=== PATIENT | male | born 1995 | race Hispanic/Latino ===

== ENCOUNTER 2018-01-22 18:54 | Emergency (ER) | payer SELFPAY ==
[2018-01-22] MEDS ORDERED: Ibuprofen 800 MG TAB ONE (19:02)
--- NOTE | 2018-01-22 20:12 | RAD ---
RIGHT WRIST THREE VIEWS: HISTORY: A 22-year-old male with a history of right wrist pain following an injury. FINDINGS: Comminuted fracture of the distal radial metadiaphysis with some dorsal displacement, slight foreshor tening, and dorsal angulation. Displaced ulnar styloid process fracture. IMPRESSION: 1. Slightly comminuted, minimally dorsally displaced and dorsally shortened distal radial fracture. 2. Displaced ulnar styloid process fracture. POS: [facility] [place]
[2018-01-22] MEDS ORDERED: Acetaminophen/Codeine 30-300mg Tablet ONE (20:13)
== END 2018-01-22 21:27 | disposition home or self-care (01) ==
LOC: ERS 18:54
DX: S52.501A Unspecified fracture of the lower end of right radius, initial encounter for closed fracture (principal); S52.601A Unspecified fracture of lower end of right ulna, initial encounter for closed fracture; W09.8XXA Fall on or from other playground equipment, initial encounter; Y93.66 Activity, soccer
CPT/HCPCS: 29125

== ENCOUNTER 2018-11-23 10:26 | Emergency (ER) | payer SELFPAY ==
[2018-11-23] MEDS ORDERED: Ibuprofen 800 MG TAB ONE (11:29)
--- NOTE | 2018-11-23 11:56 | RAD ---
PORTABLE CHEST: History: Chest pain and fever. FINDINGS: Heart size and mediastinum are within normal limits. The lungs appear clear of any infiltrative proce ss. IMPRESSION: No active intrathoracic disease. POS: [facility]
== END 2018-11-23 12:12 | disposition home or self-care (01) ==
LOC: ERS 10:26
DX: J11.1 Influenza due to unidentified influenza virus with other respiratory manifestations (principal)
CPT/HCPCS: 71045; 87804; 93005